=== PATIENT | female | born 1990 | race Caucasian/White ===

== ENCOUNTER → 2016-06-30 18:15 | Emergency (ER) | payer OTHER ==
--- NOTE | ~2016-06-30 | CR181 ---
[facility] A Service of [facility] & [facility] / [facility] RADIOLOGY TEXT RESULTS PATIENT: OLLIE RESENDIZ LOCATION: [facility] : 86 UNIT #: [id number] AGE: [address]: Ollie Lawson SEX: F ORDER DR: [id number] [facility] [address] [place], [place] [address] [id number] E MR#: [id number] Acc #: [id number] NAME: OLLIE RESENDIZ. : 1990 SEX: F STUDY DATE/TIME: 06/30/2016 17:39 UNIT: [facility] ROOM: STUDY DESCRIPTION: CR Lumbar Spine 2 or 3 Views Attending Physician: Ollie Lawson P.A.-C. Ordering Physician: Ollie Lawson P.A.-C. Primary Care Physician: No Primary Care Physician MEDICAL IMAGING REPORT This report is preliminary unless electronic signature is present EXAM 4 views lumbar spine. DATE OF EXAM 06/30/2016 INDICATION Pain in the lower back after a fall 5 days ago. FINDINGS No acute fracture or subluxation of the lumbar spine is identified. Lumbar vertebral body and alignment appears within normal limits. No aggressive osseous abnormalities are seen. IMPRESSION Negative. Dictated by... Annette Juan M.D. THIS IS AN ELECTRONICALLY VERIFIED REPORT Annette Juan M.D. at 07/01/2016 10:37 AM AFF/kenney TD: 06/30/2016 18:59 JOB #: [id number] MEDICAL IMAGING REPORT Page 1 of 1 COPY
[~2016-06-30 18:15] MED LIST: BACTRIM 400-801 TA1 PO; DIFLUCAN PO; FLONASE 0.05% N16 G1 INH; MACROBID100 MG PO; NO MEDICATIONS; SUDAFED PO; TESSALON PERLE100 M1 PO; VOLTAREN75 MG PO; ZOFRAN ODT4 MG PO; ZOVIRAX200 MG PO
== END | disposition home or self-care (01) ==
LOC: CFTX 18:15
DX: S13.4XXA Sprain of ligaments of cervical spine, initial encounter (principal); S33.5XXA Sprain of ligaments of lumbar spine, initial encounter; W10.9XXA Fall (on) (from) unspecified stairs and steps, initial encounter; Y92.009 Unspecified place in unspecified non-institutional (private) residence as the place of occurrence of the external cause
CPT/HCPCS: 72040; 72100; 99283